=== PATIENT | female | born 1965 | race Caucasian/White ===

== ENCOUNTER 2016-09-29 07:38 | Inpatient (IN) | payer BC, OTHER ==
[2016-09-13 13:26] VITALS: BMI 39.0
--- NOTE | 2016-09-13 14:07 | PAT Medication Instructions ---
Service Date Sep 13, 2016. Current Home Medication List Acetamin/Butalbital/Caffeine (Fioricet), 1 TAB PO Q4 PRN for Migraine Aspirin (Aspirin 81), 81 MG PO QAM Docusate Sodium (Stool Softener), 1 CAP PO QAM Hctz/Losartan (Hyzaar 25MG/100MG), 1 TAB PO QAM Medication Instructions For Your Scheduled Surgery - Hold the following medications the morning of surgery: Hctz/Losartan (Hyzaar 25MG/100MG), 1 TAB PO QAM Docusate Sodium (Stool Softener), 1 CAP PO QAM Acetamin/Butalbital/Caffeine (Fioricet), 1 TAB PO Q4 PRN for Migraine - Take the following medications the morning of surgery with a sip of water OTHERWISE NOTHING TO EAT OR DRINK AFTER MIDNIGHT: Aspirin (Aspirin 81), 81 MG PO QAM If you have any questions please call us at [phone] or [phone] or [phone]
--- NOTE | 2016-09-13 15:01 | DIAGNOSTIC IMAGING REPORT ---
CHEST PREADMISSION(PA/LAT) CLINICAL HISTORY: Preoperative evaluation. COMPARISON STUDY: Chest radiograph February 01, 2016. FINDINGS: Lung volumes are normal. There is no pneumothorax or pleural effusion. Cardiac size is normal. Mediastinal contours are stable. Lungs are clear. There is no evidence of pulmonary edema. IMPRESSION: No acute cardiopulmonary findings. Electronically signed by: Devin Mart M.D. 09/13/2016 3:00 PM Dictated Date/Time: 09/13/2016 3:00 PM
[2016-09-13 15:17] LABS: BASO % 0.2 %; BASO ABS # 0.02 K/uL (0-0.2); COMPLETE YES; EOS % 2.1 %; HEMATOCRIT 40.4 % (37-47); IG% 0.2 %; LYMPH % 25.7 %; LYMPH ABS # 2.19 K/uL (1.2-3.4); MEAN CELL VOLUME 82.3 fL (80-100); MEAN CORPUSCULAR HEMOGLOBIN 28.3 pg (25-34); MEAN CORPUSCULAR HGB CONC 34.4 g/dl (32-36); MEAN PLATELET VOLUME 10.4 fL (7.4-10.4); MONO % 7.6 %; NEUT % 64.2 %; PLATELET COUNT 318 K/uL (130-400); RED BLOOD COUNT 4.91 M/uL (4.2-5.4); WHITE BLOOD COUNT 8.52 K/uL (4.8-10.8)
[2016-09-13 15:28] LABS: URINE APPEARANCE CLEAR (CLEAR); URINE BILIRUBIN NEG (NEG); URINE COLOR YELLOW; URINE EPITHELIAL CELL AUTO 20-30 /lpf (0-5); URINE NITRITE NEG (NEG); URINE PH 5.5 (4.5-7.5); URINE SPECIFIC GRAVITY 1.008 (1.000-1.030); UROBILINOGEN NEG (NEG)
[2016-09-13 15:30] LABS: MANUAL MICROSCOPIC REQUIRED? NO; REVIEW REQ? NO
[2016-09-13 15:35] LABS: BUN/CREATININE RATIO 22.8 (10-20); CALCIUM 9.6 mg/dl (8.5-10.1); CREATININE 0.83 mg/dl (0.60-1.20); POTASSIUM 3.7 mmol/L (3.5-5.1)
[2016-09-29] VITALS (8 sets, daily range): BP systolic 108–156; BP diastolic 66–81; PULSE 62–86; TEMP 36.5–36.8; O2SAT 92–96; Ht 157.5 cm; Wt 97.2 kg
[~2016-09-29] VITALS: Ht 157.5 cm; Wt 97.2 kg
--- NOTE | 2016-09-29 07:27 | History & Physical Bridge Note ---
H&P Re-Evaluation Bridge Note: I have examined the patient, reviewed the History & Physical and in the interval since the performance of the History & Physical I have noted the following changes of clinical significance: No changes noted
--- NOTE | 2016-09-29 07:33 | History and Physical ---
History & Physical Date & Time of Service: Sep 29, 2016 at 07:27 Chief Complaint: Spinal Stenosis Primary Care Physician: Rush Mello M.D. History of Present Illness Source: patient Patient presents for a lumbar decompression and fusion L4-S1. Has lower back and Left leg pain. failed non operative treatment. Past Medical/Surgical History Medical Problems: (1) HTN (hypertension) Status: Chronic (2) Small vessel disease Status: Chronic Surgical Problems: (1) History of hysterectomy Status: Resolved (2) S/P foot surgery, right Status: Resolved Social History Smoking Status: Never Smoker Smokeless Tobacco Use: No Alcohol Use: none Drug Use: none Marital Status: Housing status: lives with family Occupational Status: employed Multi-Drug Resistant Organisms History of MDRO: No Allergies Coded Allergies: No Known Allergies (Unverified , 09/13/16) Home Medications Scheduled Aspirin (Aspirin 81), 81 MG PO QAM Docusate Sodium (Stool Softener), 1 CAP PO QAM Hctz/Losartan (Hyzaar 25MG/100MG), 1 TAB PO QAM Scheduled PRN Acetamin/Butalbital/Caffeine (Fioricet), 1 TAB PO Q4 PRN for Migraine Physical Exam General Appearance: no apparent distress Head: normocephalic Eyes: normal inspection ENT: normal ENT inspection Neck: supple Respiratory/Chest: chest non-tender Cardiovascular: regular rate, rhythm Abdomen/GI: non tender, soft Back: normal inspection Extremities/Musculoskelatal: normal inspection, no calf tenderness Neurologic/Psych: cook candy II-XII nml as tested, no motor/sensory deficits Skin: normal color Diagnostics Diagnostic Radiology Degenerative finding L4-5 and L5-S1 with spinal stenosis. Impression Assessment and Plan Low back Left leg pain. Will proceed with L4 to S1 decompression and fusion. Discussed risks vs benefits. Advanced Directives Existing Living Will: Yes (ENCOURAGED TO BRING COPY DOS ) Existing Power of Surgical Services Director: Yes
[~2016-09-29 07:38] MED LIST: ASPI-435 PO; CEFAZOLIN 2000 MG/60 ML D5W IV SCH; DOCU100C PO; FRCT/ PO; HYZ/10015 PO; LACTATED RINGER'S 1000ML 1,000 ML IV SCH
[2016-09-29] MEDS ORDERED: FENTANYL CITRATE INJ 50 MCG/1 ML 2 ML VIAL ONE ×2 (09:13→10:27)
[2016-09-29] MEDS ORDERED: MIDAZOLAM HCL 1 MG/ML 2ML VIAL ONE (09:13)
[2016-09-29] MEDS ORDERED: BUPIVACAINE/EPINEPHRINE 0.5% MPF 1:200,000 30 ML VIAL ONE (09:49)
[2016-09-29] MEDS ORDERED: SODIUM CHLORIDE 0.9% PF 50 ML VIAL ONE (09:50)
[2016-09-29] MEDS ORDERED: BACITRACIN 50000 UNIT VIAL ONE (09:50)
[2016-09-29] MEDS ORDERED: HYDROmorphone INJ 2 MG/ML SYR/VIAL ONE (10:28)
[2016-09-29] MEDS ORDERED: ATROPINE SULFATE 0.1 MG/ML 5ML SYR IV PRN (11:15)
[2016-09-29] MEDS ORDERED: ONDANSETRON INJ 2 MG/ML 2 ML VIAL IV PRN ×2 (11:15→12:00)
[2016-09-29] MEDS ORDERED: LABETALOL HCL IV 5 MG/ML 20ML IV PRN (11:15)
[2016-09-29] MEDS ORDERED: SODIUM CHLORIDE 0.9% 1000ML 1,000 ML IV SCH (11:57)
--- NOTE | 2016-09-29 11:57 | [facility] Post Operative Brief Note ---
Immediate Operative Summary Operative Date Sep 29, 2016. Pre-Operative Diagnosis Degenerative finding L4-L5, L5-S1 with Spinal Stenosis Post-Operative Diagnosis Same as preoperative diagnosis Procedure(s) Performed L4-L5, L5-S1 Lumbar Decompression and Fusion, with Verical Spine, Interbody L4-L5 Surgeon Dr Monet Dance [employer] Hostess Surgeon(s) Benny Poon PA-C Estimated Blood Loss 200ml Findings stenosis/spondy Specimens None per surgeon
[2016-09-29] MEDS ORDERED: NALOXONE HCL 0.4 MG/1 ML VIAL/CARP IV PRN ×2 (12:00)
[2016-09-29] MEDS ORDERED: METOCLOPRAMIDE HCL INJ 5 MG/ML 2 ML VIAL IV PRN (12:00)
[2016-09-29] MEDS ORDERED: hydrOXYzine HCL 25 MG TAB PO PRN (12:00)
[2016-09-29] MEDS ORDERED: LORAZEPAM INJ 0.5 MG in SYRINGE 0 ML IV PRN (12:00)
[2016-09-29] MEDS ORDERED: BUTALBITAL/ACETAMIN/CAFFEINE TAB PO PRN (12:00)
[2016-09-29] MEDS ORDERED: FAMOTIDINE 20 MG TAB PO PRN (12:00)
[2016-09-29] MEDS ORDERED: ALUMINUM/MAGNESIUM SUSP 30 ML UDC PO PRN (12:00)
[2016-09-29] MEDS ORDERED: BISACODYL 10 MG SUPP PR PRN (12:00)
[2016-09-29] MEDS ORDERED: DO NOT ADMINISTER FLU VACCINE PRN ×3 (12:00)
[2016-09-29] MEDS ORDERED: SOD PHOSPHATE/SOD BIPHOSPHATE ENEMA 132 ML BTL PR PRN (12:00)
[2016-09-29] MEDS ORDERED: ACETAMINOPHEN IV 100 ML IV PRN (12:00)
[2016-09-29] MEDS ORDERED: MAGNESIUM HYDROXIDE SUSP 30 ML UDC PO PRN (12:00)
[2016-09-29] MEDS ORDERED: PROMETHAZINE HCL INJ 12.5 MG in SODIUM CHLORIDE 0.9% 50ML 50 ML IV PRN (12:00)
[2016-09-29] MEDS ORDERED: ACETAMINOPHEN 500 MG TAB PO PRN (12:00)
[2016-09-29] MEDS ORDERED: LORAZEPAM 0.5 MG TAB PO PRN (12:00)
[2016-09-29] MEDS ORDERED: DO NOT ADMINISTER PNEUMOCOCCAL VACCINE PRN ×2 (12:00)
[2016-09-29] MEDS ORDERED: PROPOFOL IV EMULSION 10 MG/ML 20 ML VIAL IV ONE (12:02)
[2016-09-29] MEDS ORDERED: EpHEDrine SULFATE 50MG/5ML SYR ONE (12:02)
[2016-09-29] MEDS ORDERED: NEOSTIGMINE METHYLSULFATE 1 MG/ML 10ML VIAL ONE (12:02)
[2016-09-29] MEDS ORDERED: LIDOCAINE HCL 2% 2 ML VIAL (20MG/ML) ONE (12:02)
[2016-09-29] MEDS ORDERED: ONDANSETRON INJ 2 MG/ML 2 ML VIAL ONE (12:02)
[2016-09-29] MEDS ORDERED: ROCURONIUM BROMIDE 10 MG/ML 5 ML VIAL ONE (12:02)
[2016-09-29] MEDS ORDERED: GLYCOPYRROLATE INJ 0.2 MG/ML VIAL ONE (12:02)
[2016-09-29] MEDS ORDERED: DEXAMETHASONE SOD INJ 4 MG/ML VIAL ONE (12:02)
[2016-09-29] MEDS ORDERED: KETOROLAC TROMETHAMINE 30 MG/ML VIAL ONE (12:03)
--- NOTE | 2016-09-29 12:16 | DIAGNOSTIC IMAGING REPORT ---
LUMBAR SPINE, INTRAOPERATIVE FLUOROSCOPY HISTORY: L4-S1 decompression and fusion. FLUOROSCOPY TIME: 24 seconds. FINDINGS: Intraoperative fluoroscopy was provided for the lumbar spine. 2 fluoroscopic spot images were obtained. Posterior decompression and fusion from L4 through S1 with pedicle screws and rods. The hardware appears intact. IMPRESSION: Fluoroscopy provided for a L4-S1 posterior decompression and fusion. Electronically signed by: Thong Barrios M.D. 09/29/2016 12:14 PM Dictated Date/Time: 09/29/2016 12:14 PM
--- NOTE | 2016-09-29 12:17 | OPERATIVE REPORT ---
DATE OF OPERATION: 09/29/2016 PREOPERATIVE DIAGNOSES: Spinal stenosis, spondylolisthesis. POSTOPERATIVE DIAGNOSIS: Same. PROCEDURE PERFORMED: 1. Lumbar decompression, medial facetectomy, and foraminotomy L3-4, L4-5, L5-S1. 2. Posterior spinal fusion L4-5, L5-S1. 3. Placement posterior segmental instrumentation using Orthros rods and screws L4-5, L5-S1. 4. Interbody fusion L4-L5. 5. Placement of PEEK cage 12 x 22 mm at L4-L5. 6. Placement of locally harvested morcellized autograft in the posterior gutters. 7. Placement of Infuse collagen sponge combined with Mastergraft in the posterior gutters and Karine bone graft in the interbody space. SURGEON: Dr. Dinesh Monet. SYSTEMS INTEGRATOR: Sunday Poon PA-C. Due to the complex nature of the procedure, the entire surgery was performed with the health care legal assistant of Sunday Poon PA-C. The emergency room physician assistant, under direct supervision, was involved in the actual performance of all aspects of the surgical procedure including hemostasis, tissue retraction and incision, instrument management, patient positioning, and wound closure. ANESTHESIA: General. DISPOSITION: The patient awakened and taken to PACU in stable condition. HISTORY OF PATIENT'S PROBLEMS: This is a 51-year-old female that presents with above-mentioned diagnosis. After failing an extensive course of nonoperative care, elected to undergo the above-mentioned procedure. Risks, benefits, pros, cons, and alternatives were outlined in detail preoperatively. OPERATION AND FINDINGS: PROCEDURE: The patient was met with preoperatively, case discussed and all questions were addressed. At that point the patient was taken back to operative suite and after undergoing successful general intubation by the department of anesthesia was placed in prone position on Desmond table atop Jonh frame. All bony prominences were well padded and the eyes were inspected to ensure there was no external pressure placed upon them. At this point, lumbar spine was prepped and draped in normal sterile fashion. Sharp dissection with the assistance of Bovie cautery was performed down to and exposing the lamina and transverse processes of L4-L5 and sacral ala bilaterally. From a caudal to cephalad fashion, complete laminectomy of L5, L4, partial laminectomy of L3 was performed addressing severe lateral recess stenosis secondarily exacerbated by the spondylolisthesis at L4-5 level. After this was complete, pedicle screws were then placed in 4, 5 and S1 levels bilaterally with the assistance of fluoroscopy and through a transforaminal approach on the right, a complete discectomy of L4-5 was performed, endplates curetted to subcortical bone and a 12 x 22 mm PEEK cage filled with Karine bone grafting tapped into position. Appropriate size rods were then contoured, locked into position bilaterally and the transverse processes of 4, 5 and sacral ala burred to subcortical bone. Infuse collagen sponge combined with Mastergraft and locally harvested morselized autograft was placed in the posterior gutters. A 7 flat GODFREY drain was inserted. Incision was closed with 1 Vicryl in the fascia, 2-0 Vicryl subcutaneously, 4-0 Monocryl for final skin closure. Steri-Strips and sterile dressing placed. The patient was awakened and taken to PACU in stable condition. I attest to the content of the Intraoperative Record and any orders documented therein. Any exceptio ns are noted below.
[2016-09-29] MEDS: HYDROmorphone INJ 2 MG/ML SYR/VIAL IV PRN ×4 (12:25→12:40)
[2016-09-29] MEDS ORDERED: HYDROmorphone INJ 1 MG/ML SYR IV PRN (12:30)
[2016-09-29] MEDS: HYDROmorphone HCL 0.5MG/ML 50 ML CASSETTE IV PRN ×4 (12:42→22:48)
--- NOTE | 2016-09-29 13:40 | Anesthesiology Progress Note ---
Anesthesia Post Op Note Date & Time Sep 29, 2016 at 13:40 Vital Signs Pain Intensity: 4 Vital Signs Past 12 Hours Date Time Temp Pulse Resp B/P Pulse Ox O2 Delivery O2 Flow Rate FiO2 09/29/16 13:05 72 14 150/79 95 Nasal Cannula 3 09/29/16 12:55 36.2 75 14 165/87 94 Nasal Cannula 3 09/29/16 12:45 75 18 149/77 97 Mask 10 09/29/16 12:35 79 18 149/86 97 Mask 10 09/29/16 12:25 81 18 142/80 97 Mask 15 09/29/16 12:22 36.4 82 14 144/94 97 Mask 15 09/29/16 08:17 36.8 75 20 156/79 96 Room Air Notes Mental Status: alert / awake / arousable, participated in evaluation Pt Amnestic to Procedure: Yes Nausea / Vomiting: adequately controlled Pain: adequately controlled Airway Patency, RR, SpO2: stable & adequate BP & HR: stable & adequate Hydration State: stable & adequate Anesthetic Complications: no major complications apparent
[2016-09-29] MEDS: LACTATED RINGER'S 1000ML 1,000 ML IV SCH ×2 (14:14→20:36)
[2016-09-29] MEDS: CEFAZOLIN IV 2,000 MG in DEXTROSE 5% 50ML 50 ML IV SCH (17:40)
[2016-09-29] MEDS: DEXAMETHASONE INJ 6 MG in SYRINGE 0 ML IV SCH (20:31)
[2016-09-29] MEDS: DOCUSATE SODIUM/SENNA 50/8.6MG TAB PO SCH (20:33)
[2016-09-30] VITALS (7 sets, daily range): BP systolic 101–130; BP diastolic 60–67; PULSE 57–76; TEMP 36.7–37.1; O2SAT 90–96
[2016-09-30] MEDS: LACTATED RINGER'S 1000ML 1,000 ML IV SCH ×2 (02:20→10:02)
[2016-09-30] MEDS: CEFAZOLIN IV 2,000 MG in DEXTROSE 5% 50ML 50 ML IV SCH (02:20)
[2016-09-30] MEDS: DEXAMETHASONE INJ 6 MG in SYRINGE 0 ML IV SCH ×2 (03:33→13:13)
[2016-09-30 05:40] LABS: COMPLETE YES; HEMATOCRIT 32.5 % (37-47); IG% 0.2 %; LYMPH % 5.8 %; MEAN CELL VOLUME 83.3 fL (80-100); MEAN CORPUSCULAR HEMOGLOBIN 27.7 pg (25-34); MEAN CORPUSCULAR HGB CONC 33.2 g/dl (32-36); MEAN PLATELET VOLUME 10.5 fL (7.4-10.4); MONO % 3.2 %; NEUT % 90.8 %; PLATELET COUNT 238 K/uL (130-400); WHITE BLOOD COUNT 12.12 K/uL (4.8-10.8)
[2016-09-30] MEDS ORDERED: HYDROmorphone INJ 0.5 MG/0.5 ML SYR IV PRN (06:00)
[2016-09-30] MEDS ORDERED: DC PCA SCH (06:00)
[2016-09-30 06:04] LABS: BUN/CREATININE RATIO 22.8 (10-20); CALCIUM 8.3 mg/dl (8.5-10.1); CREATININE 0.76 mg/dl (0.60-1.20); POTASSIUM 4.2 mmol/L (3.5-5.1)
[2016-09-30] MEDS: LOSARTAN/HCTZ 50-12.5 EA TAB PO SCH (09:00)
[2016-09-30] MEDS: OXYCODONE HCL IR 5 MG TAB (IMMEDIATE RELEASE) PO PRN ×5 (09:12→22:08)
[2016-09-30] MEDS ORDERED: RXC5 PO (09:33)
--- NOTE | 2016-09-30 09:34 | Discharge Instructions ---
Discharge Instructions Admission Reason for Admission: Spinal Stenosis Discharge Discharge Diagnosis / Problem: stenosis Discharge Goals Goal(s): Improve function Activity Recommendations Activity Limitations: per Instructions/Follow-up section . Instructions / Follow-Up Instructions / Follow-Up ACTIVITY RECOMMENDATIONS: SELF CARE INSTRUCTIONS AFTER THORACIC/LUMBAR FUSIONS 1. You may walk to your tolerance. It is good exercise for your legs and back. Expect some back and intermittent leg aches and pains. 2. You may perform "counter-top" level activities (make a sandwich, lobo with a project, etc.). 3. No bending or lifting of more than 10 pounds or back twisting of any nature (roll like a log when turning in bed). 4. You may ride in a car for 20-30 minutes at a time. No driving until after your first visit with your doctor. 5. Frequent changes of position and restricting sitting to 30 minutes at a time will help limit the amount of back spasms and stiffness you may experience. 6. You may discontinue the use of ambulatory aids (cane, crutches, etc.) once your strength and confidence allow. 7. You may engineering production worker the shower and let water strike your incision when you arrive home at least once daily. Do not take a tub bath, sit in a hot tub or go into a swimming pool until after your first recheck in the office. SPECIAL CARE INSTRUCTIONS: VERY IMPORTANT TO READ AND REVIEW A. Your surgical incision has been closed with a cosmetic suture under the skin that will dissolve in about 6 weeks. In 14 days, you can use a pair of clean scissors and cut the suture that is left outside of the skin at the ends of your incision. 1. The small skin tapes can be removed 7 days after surgery if they have not fallen off by that point. 2. You may keep the wound open to air as much as possible to promote healing after post-op day number 5 unless told otherwise by your doctor. 3. If you think the wound looks like it is becoming infected (redness or worsening drainage) and/or you are experiencing fever, chill or worsening back pain and muscle spasms, contact the office so that we may evaluate you as soon as possible. B. Complications are uncommon, but please contact us if you have any signs or symptoms of: 1. wound infection (fever higher than 102.5 degrees F, redness, separation of wound, drainage, or increasing pain from the incision) 2. blood clots in legs (pain, swelling, redness and warmth in legs) 3. urinary tract infection (fever higher than 102.5 degrees F, burning upon urination or increased frequency of urination) 4. nerve problems (inability to walk on your toes or heels, numbness, loss of bowel or bladder control) 5. any other symptoms that concern you C. Please call the office at if you have any concerns or questions about your operation or recovery. D. No smoking! Smoking drastically decreases the chance of a solid fusion. E. Do not take any anti-inflammatory medications (Indocin, Advil, Motrin, Aspirin, Naprosyn, etc.) as these may inhibit the chance of a solid fusion. Tylenol is okay to take for pain. MANAGING PAIN AFTER SPINAL SURGERY 1. Narcotic medication is intended for short-term use and will be provided for surgical pain. Surgical pain usually lasts for a period of 4-6 weeks. Narcotic medication includes Percocet, Vicodin, Darvocet, Tylenol #3 or Lortab. 2. Longer-term pain is more appropriately treated with non-narcotic medication such as Tylenol ES. 3. Muscle spasm is not appropriately treated with narcotics. Muscle relaxers such as Soma, Flexeril or Skelaxin can be used along with Tylenol ES. 4. Remember that we all live with some "aches and pains". This is not unusual or uncommon after an injury or as we get older. a. Back pain is expected and may include muscle spasms for 4 to 6 weeks after surgery. The pain should gradually improve. If the pain worsens for no apparent reason, please contact the office. b. Intermittent leg pain may also be experienced and should not be concerned about unless it worsens for no apparent reason. If so, please contact the office. 5. We will provide appropriate medication within the normal guidelines of their prescribed use. We will also be very cautious and aware of potential abuse and extended duration of patients' medication needs. a. Pain medications are for your comfort and to assist with sleep and rest so that the tissue can heal. They are not provided in order to return to normal activity and should not be used through the day. To do so or worsening pain at night can result from ongoing tissue damage and development of tolerance to the prescribed medicine. 6. Please allow 2-3 days to process refills. Prescriptions will not be mailed but must be picked up at the office. FOLLOW UP VISIT: Keep your scheduled follow-up appointment. Any questions, please call the office at . Current Hospital Diet Patient's current hospital diet: Regular Diet Discharge Diet Recommended Diet: Regular Diet Procedures Procedures Performed: L4-L5, L5-S1 Lumbar Decompression and Fusion, with Verical Spine, Interbody L4-L5 Pending Studies Studies pending at discharge: no Medical Emergencies . Who to Call and When: Medical Emergencies: If at any time you feel your situation is an emergency, please call 911 immediately. . Non-Emergent Contact Non-Emergency issues call your: Primary Care Provider . "Provider Documentation" section prepared by Dinesh Monet. VTE Core Measure Inpt VTE Proph given/why not?: Vaishali Moses, SCD's
[2016-09-30] MEDS: ASPIRIN 81 MG ECTAB PO SCH (10:02)
--- NOTE | 2016-09-30 10:24 | PROGRESS NOTE ---
DATE: 09/30/2016 DATE: 09/30/2016. SUBJECTIVE: Back pain is controlled. Leg pain markedly improved. Vital signs stable. T-max 37.1. GODFREY drained 70 mL today. Hematocrit stable at 32.5. OBJECTIVE: On exam she is in chair at bedside. Has good strength to testing. ASSESSMENT: Status post lumbar decompression and fusion. PLAN: At this time, will continue physical therapy, advance her bowel regimen and anticipate home Sunday or Sunday.
[2016-09-30] MEDS ORDERED: NURSING VERBAL MED ORDER ONE (17:30)
[2016-09-30] MEDS: DOCUSATE SODIUM/SENNA 50/8.6MG TAB PO SCH (21:01)
[2016-10-01] MEDS: OXYCODONE HCL IR 5 MG TAB (IMMEDIATE RELEASE) PO PRN ×3 (02:11→10:15)
[2016-10-01] MEDS: POLYETHYLENE (MIRALAX) 17 GM PACK PO SCH ×2 (06:15→12:31)
[2016-10-01 06:36] VITALS: BP 117/72; PULSE 64; TEMP 37; O2SAT 92
[2016-10-01] MEDS: LOSARTAN/HCTZ 50-12.5 EA TAB PO SCH (07:17)
[2016-10-01] MEDS: ASPIRIN 81 MG ECTAB PO SCH (07:27)
--- NOTE | 2016-10-01 11:02 | DISCHARGE SUMMARY ---
PRINCIPAL DIAGNOSIS: Spinal stenosis. HOSPITAL COURSE FOLLOWS: On September 29, patient underwent lumbar decompression and fusion, tolerated this well and taken to the orthopedic floor postoperatively. Postop day #1, she was up and ambulatory, progressed nicely through postop day #2. GODFREY drain decreased appropriately, subsequently discharged home. Discharge orders and instructions found on the chart for further review.
[2016-10-01 11:57] VITALS: BP 117/72; PULSE 64; TEMP 37; O2SAT 92
== END 2016-10-01 13:01 | disposition home or self-care (01) | DRG 460 ==
LOC: ENRESERVDT → ENRESERVTM → C.ACU 07:38 → C.3E 10:00
PROVIDERS: ADMIT Orthopaedic Surgery Orthopaedic Surgery of the Spine; ATTEND Orthopaedic Surgery Orthopaedic Surgery of the Spine
PROC: 0SG3071 Fusion of Lumbosacral Joint with Autologous Tissue Substitute, Posterior Approach, Posterior Column, Open Approach (ICD-10-PCS; principal; 2016-09-29 09:55)
PROC: 3E0U0GB Introduction of Recombinant Bone Morphogenetic Protein into Joints, Open Approach (ICD-10-PCS; principal; 2016-09-29 09:55)
PROC: 0SG00AJ Fusion of Lumbar Vertebral Joint with Interbody Fusion Device, Posterior Approach, Anterior Column, Open Approach (ICD-10-PCS; principal; 2016-09-29 09:55)
PROC: 01NB0ZZ Release Lumbar Nerve, Open Approach (ICD-10-PCS; principal; 2016-09-29 09:55)
PROC: 0ST20ZZ Resection of Lumbar Vertebral Disc, Open Approach (ICD-10-PCS; principal; 2016-09-29 09:55)
PROC: 0SG0071 Fusion of Lumbar Vertebral Joint with Autologous Tissue Substitute, Posterior Approach, Posterior Column, Open Approach (ICD-10-PCS; principal; 2016-09-29 09:55)
DX: M48.06 Spinal stenosis, lumbar region (principal); M48.07 Spinal stenosis, lumbosacral region; M43.16 Spondylolisthesis, lumbar region; I10 Essential (primary) hypertension; G43.909 Migraine, unspecified, not intractable, without status migrainosus; E66.9 Obesity, unspecified; Z68.39 Body mass index [BMI] 39.0-39.9, adult; Z79.82 Long term (current) use of aspirin; Z79.899 Other long term (current) drug therapy

== ENCOUNTER 2020-03-15 07:00 | Observation (INO) ==
--- NOTE | 2020-02-25 12:42 | PAT Medication Instructions ---
Medication Instructions Date of Service February 25, 2020 Home Medications rnqxoqaqyb-jowffumbxtmvj-vcgsrcel 50 mg-300 mg-40 mg capsule 1 cap PO Q8H PRN aspirin 81 mg PO QAM hydrochlorothiazide 25 mg PO QAM losartan 100 mg PO QAM meloxicam [Mobic] 15 mg PO QAM ASK your surgeon for instructions meloxicam [Mobic] 15 mg PO QAM DO NOT take the morning of surgery yuvfexcwjz-hiqkvcnprzdwc-opswwyco 50 mg-300 mg-40 mg capsule 1 cap PO Q8H PRN hydrochlorothiazide 25 mg PO QAM losartan 100 mg PO QAM Take morning of surgery With a small sip of water, OTHERWISE NOTHING TO EAT OR DRINK AFTER MIDNIGHT: aspirin 81 mg PO QAM Other Notes If you have any questions please call us at [phone] or [phone] or [phone] or [phone]
--- NOTE | 2020-02-25 14:23 | Anesthesiology Consultation ---
Date of Service February 25, 2020 Assessment & Plan (1) Encounter for pre-operative examination: COVID Status: As of 02/24 assessment, patient denies travel to endemic area, known exposure/sick contacts, or symptoms of COVID19. Patient instructed that they and their household members must follow strict social distancing guidelines, wear a mask in public and avoid travel for 14 days prior to surgery. Preoperative COVID19 testing to be completed prior to surgery per surgeon's arrangements. Patient made aware to self-isolate as much as possible between COVID testing and surgery. Chart Review Chart Review: Acceptable Risk for Surgery and Patient seen in Pre Admission Testing Teaching & Discussion Instructed NPO after midnight before surgery, except medications with 15 cc of water. Medication instructions provided according to the PAT guidelines. History Surgery Operation Date: 03/15/20 09:20 Proposed Procedures p Left Uni Compartment Knee Arthroplasty versus - Beto Arvizu DO s Left Total Knee Arthroplasty - Beto Arvizu DO Height/Weight Height: 5 ft 2.5 in Weight: 101.2 kg Allergies Allergy/AdvReac Type Severity Reaction Status Date / Time No Known Allergies Allergy Verified 02/19/20 07:46 Medications Home Medications Medication Instructions Recorded Confirmed Last Taken gfremjozfo-wswhdslkrxwcg-lfpzsdtd 1 cap PO Q8H PRN 10/01/19 02/25/20 Unknown 50 mg-300 mg-40 mg capsule aspirin 81 mg PO QAM 02/19/20 02/25/20 Unknown hydrochlorothiazide 25 mg PO QAM 02/19/20 02/25/20 Unknown losartan 100 mg PO QAM 02/19/20 02/25/20 Unknown meloxicam [Mobic] 15 mg PO QAM 02/19/20 02/25/20 Unknown Past Medical History Medical History (Updated 02/26/20 @ 08:50 by Jung Morrow) Hypertension Migraines Morbid obesity Osteoarthritis Small vessel disease Syncopal episodes LAST EPISODE 1.5 YEARS AGO. Patient reports she had a full workup for syncope and it was eventually ruled to be a complex migraine. Exercise / Class Metabolic Activity II 4-5 Yardwork/Stairs/Walk up hill (Denies CP or SOB with 1FOS) Past Family History Family History Other No significant family history Past Surgical History Surgical History Family history of reaction to anesthesia MOTHER AND SISTER-SLOW TO WAKE UP Fusion of spine LUMBAR H/O foot surgery RT (SPUR/TENDON REPAIR) History of anesthesia reaction SLOW COMING OUT OF ANESTHESIA History of cardiac cath AT AGE 38 D/T SYNCOPAL EPISODE (NO STENTS) History of carpal tunnel release LEFT History of colonoscopy History of tooth extraction Hx of total hysterectomy Past Anesthesia History No Family Hx of Anesthesia Complications (other than "slow to wake") Pt reports she was kept overnight after hysterectomy when she was supposed to go home same-day because she was so "slow to wake." History of PONV No Hx of PONV and No Hx of Motion Sickness Social History Smoking Status: Never smoker Do You Dip or Chew Tobacco: No Hx Alcohol Use: Yes alcohol intake frequency: holidays/special occasions only Hx Substance Use: No substance use type: does not use Review of Systems Pt denies any recent chest pain, shortness of breath, palpitations, cough, fever, URI, or uncontrolled acid reflux. Physical Exam Vital Signs BP: 119/73 P: 78bpm SPO2: 98% RA T: 98.2 F R: 16 Constitutional + obese ENMT Mouth: + dental restorations (crown lower L side); no chipped teeth and no loose teeth Thyromental Distance: > or= 3.5 Finger Breadths (4) Mallampati Class: I Neck + short neck and + thick neck; neck extension not limited Respiratory normal respiratory effort Auscultation: + crackles (Inspiratory L lung base, otherwise CTA B/L) Cardiovascular Rate/Rhythm: regular rate and regular rhythm Heart Sounds: no murmur Vessels: no carotid bruit Extremities: no edema Testing Laboratory Results 02/25/20 14:15 02/25/20 14:15 PT 11.3 Seconds (9.0-12.0) 02/25/20 14:15 INR 1.1 (0.9-1.1) 02/25/20 14:15 APTT 27.4 Seconds (21.0-31.0) 02/25/20 14:15 Blood Type B Positive 02/25/20 14:15 Antibody Screen NEGATIVE 02/25/20 14:15 Electrocardiogram Date: 09/15/19 Findings: + NSR @ (84bpm) Moderate voltage criteria for LVH, may be normal variant. NSTWA. Chest X-Ray Date: 09/15/19 Findings: + NAD
[2020-02-25 15:08] LABS: Basophils # (auto) 0.01 K/uL (0-0.2); Basophils % (auto) 0.1 %; Eosinophils # (auto) 0.16 K/uL (0-0.5); Eosinophils % (auto) 2.1 %; Hematocrit (blood only) 39.8 % (37-47); Hemoglobin 13.3 g/dL (12.0-16.0); Immature Granulocytes # (auto) 0.01 K/uL (0.00-0.02); Immature Granulocytes % (auto) 0.1 %; Lymphocytes % (auto) 27.9 %; Mean Corpuscular Hemoglobin 27.9 pg (25-34); Mean Corpuscular Hgb Conc 33.4 g/dL (32-36); Mean Corpuscular Volume 83.4 fL (80-100); Mean Platelet Volume 10.5 fL (7.4-10.4); Monocytes # (auto) 0.53 K/uL (0.11-0.59); Neutrophils # (auto) 4.71 K/uL (1.4-6.5); Neutrophils % (auto) 62.8 %; Platelet Count 329 K/uL (130-400); RDW Coefficient of Variation 13.7 % (11.5-14.5); RDW Standard Deviation 41.1 fL (36.4-46.3); Red Blood Count 4.77 M/uL (4.2-5.4); White Blood Count 7.52 K/uL (4.8-10.8)
[2020-02-25 15:20] LABS: INR 1.1 (0.9-1.1); Partial Thromboplastin Time 27.4 Seconds (21.0-31.0); Prothrombin Time 11.3 Seconds (9.0-12.0)
[2020-02-25 15:36] LABS: BUN Creatinine Ratio 18.9 (10-20); Calcium 9.2 mg/dl (8.5-10.1); Creatinine Clr Calc Pharmacy 72.8 ml/min; Est GFR (African American) 75.7; Est GFR (Non-African American) 65.3; Potassium 3.8 mmol/L (3.5-5.1)
--- NOTE | 2020-03-11 07:02 | History & Physical Report ---
Date of Service March 11, 2020 Assessment & Plan (1) Osteoarthritis of left knee: We will proceed with a left unicompartmental knee arthroplasty. She understands the increased risk of the procedure given her obesity and BMI of 40.2. She would still like to proceed with a partial knee replacement over a standard knee replacement procedure. Postoperatively she will be kept overnight in the hospital for postoperative medical management. She will be kept on aspirin for DVT prophylaxis. She plans to use [facility] upon discharge. Present on Admission?: Yes History of Present Illness Chief Complaint: Primary osteoarthritis of the left knee Primary Care Provider: Rush Mello MD Halie is a pleasant 55-year-old female who is been dealing with chronic increasing left knee pain. MRI, x-rays, and clinical examination have all been diagnostic for medial compartmental arthritis of the left knee. After failing conservative treatment, she has elected to proceed with a left unicompartmental knee arthroplasty. Allergies Allergy/AdvReac Type Severity Reaction Status Date / Time No Known Allergies Allergy Verified 02/19/20 07:46 Home Medications Home Medications Medication Instructions Recorded Confirmed Type sabgzggaqp-javxgknqsrynd-lcuvikvc 1 cap PO Q8H PRN 10/01/19 02/25/20 History 50 mg-300 mg-40 mg capsule aspirin 81 mg PO QAM 02/19/20 02/25/20 History hydrochlorothiazide 25 mg PO QAM 02/19/20 02/25/20 History losartan 100 mg PO QAM 02/19/20 02/25/20 History meloxicam [Mobic] 15 mg PO QAM 02/19/20 02/25/20 History Past Med/Surg History Medical History Hypertension Migraines Morbid obesity Osteoarthritis Small vessel disease Syncopal episodes LAST EPISODE 1.5 YEARS AGO. Patient reports she had a full workup for syncope and it was eventually ruled to be a complex migraine. Surgical History Family history of reaction to anesthesia MOTHER AND SISTER-SLOW TO WAKE UP Fusion of spine LUMBAR H/O foot surgery RT (SPUR/TENDON REPAIR) History of anesthesia reaction SLOW COMING OUT OF ANESTHESIA History of cardiac cath AT AGE 38 D/T SYNCOPAL EPISODE (NO STENTS) History of carpal tunnel release LEFT History of colonoscopy History of tooth extraction Hx of total hysterectomy Family History Other No significant family history Social History Smoking Status: Never smoker Second Hand Exposure: Yes ( A CHILD); Hx Alcohol Use: Yes Hx Substance Use: No Preferred Language: Korean 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 Beliefs That Will Affect Care: None Current Living Situation: Family Feels Safe at Home: Yes Review of Systems Review of Systems: All systems reviewed & are unremarkable except as noted in HPI & below Physical Exam Constitutional: WD/WN, vitals as above Eyes: PERRL, conjunctivae normal, anicteric sclerae ENMT: external ear and nose normal, oropharynx normal Neck: trachea midline, no thyromegaly Respiratory: normal respiratory effort Cardiovascular: RRR, no murmur, no edema Gastrointestinal (Abdomen): normal bowel sounds, soft, nontender, no hepatosplenomegaly Musculoskeletal: On physical examination of the left knee there is a trace effusion. There is near full range of motion and no evidence of instability. There is significant tenderness palpation along the medial and lateral joint lines and over the distal femoral condyles. Psychiatric: A+Ox3, euthymic affect Results & Data Results & Data ([facility]) Diagnostic Findings Radiographs of the left knee demonstrate advanced osteoarthritis with joint space narrowing osteophyte formation and dfng-so-gxvf articulation. PG Care Time/CCT Total # of Minutes Spent Total Time Spent with Patient: Total time spent is greater than 50% in coordination of care (as documented) at patient's floor/unit and/or counseling patient: Coding Level of Care Code 36622 Initial Inpt Care Lvl 3 Diagnoses Osteoarthritis of left knee M17.12
[~2020-03-15 07:00] MED LIST changes: +ACETAMINOPHEN 500 MG TAB PO SCH; -ASPI-435 PO; +BUPIVACAINE 0.25% 30 ML VIAL ONE; +BUPIVACAINE 0.5 % 5 MG/1 ML PF 10ML VIAL ONE; -CEFAZOLIN 2000 MG/60 ML D5W IV SCH; +CEFAZOLIN 2000MG 2,000 MG/15 ML SYR IV SCH; -DOCU100C PO; +FAMOTIDINE 20 MG TAB PO SCH; -FRCT/ PO; +GABAPENTIN 600 MG DOSE PO SCH; -HYZ/10015 PO; -LACTATED RINGER'S 1000ML 1,000 ML IV SCH; +LR 500ML BOLUS, THEN 15ML/HR IV SCH; +LR 60ML/HR IV SCH; +ROPIVACAINE 0.5% HCL/PF 150 MG, BUPIVACAINE 0.5% MPF 30 ML, EPINEPHrine 30MG/30ML (OR U... INSTIL SCH; +TRANEXAMIC ACID 1,000 MG **IV Intra-op IV SCH; +TRANEXAMIC ACID 1,000 MG **IV Pre-op IV SCH; +dexAMETHasone 4 MG TAB PO SCH
[2020-03-15] MEDS ORDERED: MIDAZOLAM HCL 1 MG/ML 2ML VIAL ONE (08:08)
[2020-03-15] MEDS ORDERED: ePHEDrine sulfate 50 MG/ML AMP IV PRN (08:27)
[2020-03-15] MEDS ORDERED: ATROPINE SULFATE 0.1 MG/ML 10ML SYR IV PRN (08:27)
[2020-03-15] MEDS ORDERED: fentaNYL citrate 100 MCG/2 ML VIAL IV PRN (08:27)
[2020-03-15] MEDS ORDERED: ONDANSETRON INJ 2 MG/ML 2 ML VIAL IV PRN ×2 (08:27→12:41)
--- NOTE | 2020-03-15 09:18 | History & Physical Bridge Note ---
Date of Service March 15, 2020 History & Physical Bridge Note I have examined the patient, reviewed the History & Physical and in the interval since the performance of the History & Physical I have noted the following changes of clinical significance: no changes noted
[2020-03-15] MEDS ORDERED: LIDOCAINE HCL 2% 2 ML VIAL/AMP(20MG/ML) INFIL ONE (09:34)
[2020-03-15] MEDS ORDERED: ORTHO JOINT ANESTHETIC ONE (09:34)
[2020-03-15] MEDS ORDERED: PROPOFOL IV EMULSION 10 MG/ML 20 ML VIAL IV ONE (09:34)
[2020-03-15] MEDS ORDERED: SODIUM CHLORIDE 0.9% INJ 10 ML VIAL ONE (10:07)
--- NOTE | 2020-03-15 11:38 | Operative Report ---
PG Post Operative Report Pre & Post Diagnosis Operation Date: 03/15/20 09:05 Pre-Op Diagnosis: LEFT KNEE DEGENERATIVE JOINT DISEASE Post-Op Diagnosis: LEFT KNEE DEGENERATIVE JOINT DISEASE I identified the patient and participated in the time-out.: Yes Procedure Operation Date: 03/15/20 09:05 Actual Procedures p Left Total Knee Arthroplasty(Left) - Beto Arvizu DO Surgeon Beto Arvizu DO Showcase Maker Christiano Serna PAC Estimated Blood Loss 10 Findings Consistent with Post-Op Diagnosis Specimens Left femoral and tibial bone Complications none Disposition Disposition: Recovery Room Indications Halie is a pleasant 55-year-old female who is been doing chronic increasing left knee pain. X-rays show some medial compartment arthritis. I got an MRI of the knee which showed more advanced medial compartmental arthritis and fluid within the bone. There was also a little bit of patellofemoral arthritis. We talked [id number]-[id number] about the possibility of doing a partial knee replacement, however, given her BMI and some of the arthritis in her patellofemoral compartment, we decided to proceed with a left total knee arthroplasty. Description of Procedure Implants used: I used a Simona Persona total knee arthroplasty system with a size 8 femur, D tibia, 29 patella, and a size 10 medial congruent polyethylene bearing. All components were cemented in place with Palacos G cement. Halie arrived [facility] for the above procedure. She was seen in the preoperative holding area and the operative extremity was identified and signed. She was given a preoperative antibiotic, TXA, a spinal anesthetic and an adductor nerve block. She was taken back to the operating room and laid on the table in supine position. She was given basic sedation. The operative knee was then prepped and draped in sterile fashion. A timeout was done, and the patient and the operative extremity was properly identified. A midline incision was made directly over the patella. Dissection was taken down to the extensor mechanism. A subvastus arthrotomy was used. The medial retinaculum was released and the fat pad was mostly excised. The knee was flexed and the ACL, PCL, and meniscus were removed. A drill was sent down the center of the femoral canal followed by an intramedullary sofia. Off that sofia a distal femoral cutting block was placed. 9 mm was resected off the distal femur at 5 of valgus. A posterior referencing AP sizing guide was then placed on the distal femur. The femur measured to be a size 8. 2 drill holes were placed in 3 of external rotation. A 4-in-1 cutting block was then impacted into place. Anterior, posterior, and chamfer cuts were then made. The proximal tibia was then exposed. An external tibial alignment guide was placed. A tibial cut guide was then anchored in place and the proximal tibia was then resected. The posterior aspect of the knee was then opened up and any additional meniscus fragments and osteophytes were removed. T he tibia measured to be a size D. The tibial plate was then placed in the appropriate rotation and the tibia was drilled and punched. Trial components were then placed. I used a size 10 medial congruent polyethylene insert. The knee was brought through a full range of motion and felt to be stable. The peg holes for the femoral component were then drilled. The patella was then everted and 9 mm was resected off the posterior aspect of the patella. The patella measured to be a size 29. 3 peg holes were then drilled. A trial patella was placed. The knee was once again brought through a full range of motion and felt to be stable. Trial components were then removed. The surrounding soft tissues were injected with 100 cc of an orthopedic pain control cocktail. All components were then cemented into place with Palacos G cement. The final polyethylene insert was then snapped into place. Once cement was dry the tourniquet was deflated. Hemostasis was obtained. A dilute betadyne lavage was then done for 3 minutes. The joint was then irrigated with normal saline solution. The subvastus arthrotomy was then closed with #1 Vicryl suture. The skin was closed with 2-0 Vicryl, 3-0V lock suture, and rina. A Silverlon and a soft compressive dressing were placed. She was then transferred to a hospital bed and taken to the postanesthesia care unit in stable condition. She tolerated the procedure well. Christiano Serna PA-C, was present for the entire procedure. He was critical for patient positioning, prepping, draping, retraction exposure, wound closure and application of sterile dressing. I attest to the content of the Intraoperative Record and any orders documented therein. Any exceptions are noted below.
--- NOTE | 2020-03-15 12:03 | XRay Report ---
TWO VIEWS LEFT KNEE CLINICAL HISTORY: Postoperative examination. FINDINGS: AP and crosstable lateral portable views of the left knee are obtained. A left knee arthrop lasty is in near anatomic alignment. There has been undersurface remodeling of the patella. No acute fracture is seen. There are expected postoperative changes around the knee including skin clips, soft tissue edema, and subcutaneous gas. IMPRESSION: Expected postoperative changes status post left knee arthroplasty. No acute fracture is s een. ACT 112: Negative or not required by law. Electronically signed by: Adis Horan M.D. 03/15/2020 12:02 PM
[2020-03-15] MEDS ORDERED: METOCLOPRAMIDE HCL INJ 5 MG/ML 2 ML VIAL IV PRN (12:41)
[2020-03-15] MEDS ORDERED: HYDROmorphone INJ 0.5 MG/0.5 ML SYR IV PRN (12:41)
[2020-03-15] MEDS ORDERED: MAGNESIUM HYDROXIDE SUSP 30 ML UDC PO PRN (12:41)
[2020-03-15] MEDS ORDERED: bisacodyL 10 MG SUPP PR PRN (12:41)
[2020-03-15] MEDS ORDERED: NALOXONE HCL 0.4 MG/1 ML VIAL/CARP IV PRN (12:41)
[2020-03-15] MEDS ORDERED: BUTALBITAL/ACETAMIN/CAFFEINE TAB PO PRN (12:46)
--- NOTE | 2020-03-15 13:52 | Anesthesiology Progress Note ---
Date of Service March 15, 2020 Anesthesia Post Procedure Vital Signs Vital Signs: Temp Pulse Pulse Resp BP Pulse Ox 03/15/20 13:25 68 16 135/85 97 03/15/20 12:48 64 16 138/95 97 03/15/20 12:20 36.5 C 60 15 130/84 97 03/15/20 12:05 36.7 C 65 15 126/81 96 03/15/20 11:55 67 15 137/87 95 03/15/20 11:45 72 17 136/82 94 03/15/20 11:35 36.7 C 87 17 126/84 96 03/15/20 08:44 36.6 C 73 20 156/93 H 96 03/15/20 07:58 36.7 C 68 20 169/99 H 94 Transfer of Care Handoff Completed per policy Notes Mental Status: alert / awake / arousable and participated in evaluation Patient Amnestic to Procedure: Yes Nausea / Vomiting: adequately controlled Pain: adequately controlled Airway Patency, RR, SpO2: stable & adequate BP & HR: stable & adequate Hydration State: stable & adequate Neuraxial Anesthesia: was administered and sensory block is resolving Anesthetic Complications: no major complications apparent and Pt Satisfied with anesthetic care
[2020-03-15] MEDS: ACETAMINOPHEN 500 MG TAB PO SCH ×2 (14:36→22:14)
[2020-03-15] MEDS: KETOROLAC 30 MG/ML VIAL IV SCH ×2 (14:37→19:56)
[2020-03-15] MEDS: SODIUM CHLORIDE 0.9% 1000ML 1,000 ML IV SCH ×2 (14:43→22:16)
[2020-03-15] MEDS: CEFAZOLIN 2000MG 2,000 MG/15 ML SYR IV SCH (17:39)
[2020-03-15] MEDS: DOCUSATE SODIUM 100 MG CAP PO SCH (19:57)
[2020-03-15] MEDS: ASPIRIN 81 MG ECTAB PO SCH (19:57)
[2020-03-15] MEDS ORDERED: SENNA 8.6 MG TAB PO SCH (21:00)
[2020-03-15] MEDS ORDERED: ASPIRIN 81 MG ECTAB PO SCH (21:00)
[2020-03-16] MEDS: CEFAZOLIN 2000MG 2,000 MG/15 ML SYR IV SCH (02:00)
[2020-03-16] MEDS: KETOROLAC 30 MG/ML VIAL IV SCH ×2 (02:00→08:07)
[2020-03-16] MEDS: OXYCODONE HCL IR 5 MG TAB (IMMEDIATE RELEASE) PO PRN ×2 (03:18→09:57)
[2020-03-16] MEDS: ACETAMINOPHEN 500 MG TAB PO SCH (06:00)
[2020-03-16 06:10] LABS: Hematocrit (blood only) 36.1 % (37-47); Hemoglobin 12.1 g/dL (12.0-16.0); Mean Corpuscular Hemoglobin 28.1 pg (25-34); Mean Corpuscular Hgb Conc 33.5 g/dL (32-36); Mean Corpuscular Volume 83.8 fL (80-100); Mean Platelet Volume 10.7 fL (7.4-10.4); Platelet Count 291 K/uL (130-400); RDW Standard Deviation 43.1 fL (36.4-46.3); Red Blood Count 4.31 M/uL (4.2-5.4); White Blood Count 18.23 K/uL (4.8-10.8)
[2020-03-16 06:40] LABS: BUN Creatinine Ratio 23.4 (10-20); Calcium 8.5 mg/dl (8.5-10.1); Creatinine Clr Calc Pharmacy 81.4 ml/min; Est GFR (African American) 87.5; Est GFR (Non-African American) 75.5; Potassium 3.5 mmol/L (3.5-5.1)
--- NOTE | 2020-03-16 06:40 | Orthopedic Progress Note ---
Date of Service March 16, 2020 Assessment & Plan (1) Status post left knee replacement: Overall she is doing well. She is not having too much pain in the knee. She will be seen by physical therapy this morning for ambulation and range of motion exercises. She can be discharged home later today as long as she feels safe going home. I talked to her about this extensively at bedside. If she feels comfortable this afternoon she wants to go home, however, if she is having pain or instability with the knee then she would want to stay until tomorrow. Present on Admission?: Yes Tom Ambrose was seen and examined at bedside this morning. Overall she is doing fairly well. She is having too much pain in the left knee. She has been up and ambulating to the bathroom. She has no complaints. Physical Exam Musculoskeletal: On physical examination of the left knee, the dressing is clean and dry. Her leg lengths are equal. She has active dorsiflexion and plantarflexion of her left ankle. Results & Data ([facility]) Vital Signs (Past 12 Hours) Vital Signs Temp Pulse Resp BP BP Pulse Ox 03/16/20 03:10 36.6 C 61 20 131/78 95 03/15/20 23:36 36.8 C 63 18 123/73 94 03/15/20 20:12 36.6 C 73 16 123/79 93 Laboratory Results H & H 02/25/20 03/16/20 Range/Units 14:15 05:08 Hgb 13.3 12.1 (12.0-16.0) g/dL Hct 39.8 36.1 L (37-47) % Coagulation 02/25/20 Range/Units 14:15 INR 1.1 (0.9-1.1) Diagnostic Findings Postoperative x-rays of the left knee show the prosthesis to be in anatomic alignment without any evidence of fracture, dislocation, or loosening. PG Care Time/CCT Total # of Minutes Spent Total Time Spent with Patient: Total time spent is greater than 50% in coordination of care (as documented) at patient's floor/unit and/or counseling patient: Coding Level of Care Code None Diagnoses Status post left knee replacement Z96.652
--- NOTE | 2020-03-16 06:42 | Discharge Summary ---
Date of Service March 16, 2020 Admission HPI Per Admitting Provider Halie is a pleasant 55-year-old female who is been dealing with chronic increasing left knee pain. MRI, x-rays, and clinical examination have all been diagnostic for medial compartmental arthritis of the left knee. After failing conservative treatment, she has elected to proceed with a left unicompartmental knee arthroplasty. Principal Diagnosis Left knee replacement Discharge Data Allergies Allergy/AdvReac Type Severity Reaction Status Date / Time No Known Allergies Allergy Verified 03/15/20 07:55 Consultations 03/15/20 12:41 Consult Case Management - Discharge Planning Routine Procedures Performed Operation Date: 03/15/20 09:05 Actual Procedures p Left Total Knee Arthroplasty(Left) - Beto Arvizu DO Ordered Studies 03/15/20 05:00 US - OR guided needle placemen Routine Hospital Course (1) Status post left knee replacement: On March 15, 2020 Halie [facility] and underwent a left knee replacement without complication. She had a spinal anesthetic. Postoperatively she was started on aspirin for DVT prophylaxis and transferred to the general orthopedic floors. Her hospital course was uneventful. On postop day #1 her H&H was stable and her pain was well controlled. She was able to participate well with physical therapy doing ambulation and range of motion exercises. She was then discharged home. She will follow-up with orthopedics in 2 weeks. Total Time Total Time Spent Total Time Spent (In Minutes): 20 Discharge Plan Discharge Items Patient Disposition: Home - Home Health Services Reason For Visit: LEFT KNEE DEGENERATIVE JOINT DISEASE Discharge Diagnosis: Left knee replacement Activity: As commented below Non-emergency contact: Surgeon Call non-emergency contact if: your wound has increased redness and your wound has increased drainage Follow-up/Referrals: Rush Mello MD [Primary Care Provider] - Diet: Regular Addtl Attending Provider Instructions: Activity and Therapy Recommendations: * If you are using [facility] then therapy will be provided at your home until they feel you have accomplished all of your goals. * If you are using [facility] then Physical Therapy will be provided until they feel you are ready to start Outpatient Physical Therapy. * If you are not using home therapy then Outpatient Physical Therapy should start about 3-5 days from your day of surgery. Therapy will last about 6-10 weeks * It is important not to put a pillow under your knee when you are relaxing or sleeping. It is just as important to make sure you are getting your knee perfectly straight as it is to regain your knee bend. * You were shown a series of exercises in the hospital. Do these exercises three times each day including the exercises you were shown in physical therapy. * Get up and walk several times each day. For the first four weeks, try not to stand or walk for more than one hour at a time. If you do stand or walk for more than one hour, you will not hurt anything, but your leg will likely swell. * As you feel comfortable, you may change from the walker or crutches to a cane and then to independent walking. Medications: * Narcotic You will likely be sent home from the hospital with a prescription for the narcotic pain medication that worked best throughout your stay. * Aspirin Most patients will be required to take Aspirin 81mg twice a day for 6 weeks after surgery. This is obtained [id number] and a prescription is not necessary. * Other medications may be prescribed for specific circumstances. If you have any questions, please call the office at . * Resume previous home medications unless otherwise instructed TEDs/Elastic Stockings: The white elastic stockings help limit swelling and prevent blood clots from forming in your legs.~ The more you wear them, the more they work. Wear them for six weeks. Dressing Care: Leave the Silverlon dressing in place for 7 days. After 7 days you may remove the dressing. If the incision is not draining then you may leave the rina open to air. If there is a little bit of drainage or if the rina are getting stuck on your clothing then cover the incision with a dry dressing. The rina will be removed at your 2 week follow-up appointment. Showering: You may shower with the Silverlon dressing in place. Do not let the shower sp ray hit the dressing directly. Pat the Silverlon dressing dry. If the dressing becomes wet underneath, then simply remove the dressing. Keep the incision dry until you are 7 days out from the day of surgery. After 7 days you may remove the Silverlon dressing and shower with the rina exposed. Let soapy water run over the rina and pat them dry. Do not scrub or soak the incision. Things To Watch For: * Drainage from the incision site that occurs more than one week after your surgery. * Increased redness at the incision site. * Fever above 102 degrees Fahrenheit. * Unusual chest pain or shortness of breath. * Call [facility] at with any of the above problems Follow-Up Visit: Follow-up with Dr. Arvizu's PA (Beto Samaniego) 2-3 weeks after your day of surgery. He will remove your rina and answer any questions. If you have any additional questions or concerns, Dr Arvizu is usually in the office at the same time and will be available An appointment was probably scheduled when you signed-up for surgery in the office. If you have any questions call Office Instructions: More detailed instructions as well as Frequently Asked Questions were provided in a folder by our office when you signed-up for surgery. Please review these instructions when you get home. If you have any further questions or concerns, please feel free to call the office at [phone] Pending Studies at Discharge: No Stand-Alone Forms: My [facility], Smoking Cessation Medications and DC Order Prescriptions: New oxycodone 5 mg Tablet 5 mg PO Q4H PRN (Reason: pain) Qty: 30 RF: 0 aspirin 81 mg Tablet,Delayed Release (Dr/Ec) 81 mg PO BID 42 Days Qty: 0 RF: 0 Continued ptumjrwdfw-jfcnjlfafjcss-sxww [Fioricet] 50-300-40 mg capsule 1 cap PO Q8H PRN (Reason: Migraine Headache) RF: 0 aspirin 81 mg Tablet,Delayed Release (Dr/Ec) 81 mg PO QAM RF: 0 hydrochlorothiazide 25 mg Tablet 25 mg PO QAM RF: 0 losartan 100 mg Tablet 100 mg PO QAM RF: 0 meloxicam [Mobic] 15 mg tablet 15 mg PO QAM RF: 0 Discharge Orders: Discharge Order (Routine); Ordered 03/16/20 Ordered By: Beto Arvizu Admission Data Admit Date/Time: 03/15/20 12:41 Attending Provider: Beto Arvizu Admit Provider: Beto Arvizu Primary Care Provider: Riaz,Rush Coding Level of Care Code D/C Day Management <30 mins Diagnoses Status post left knee replacement Z96.652
[2020-03-16] MEDS ORDERED: dexAMETHasone 4 MG TAB PO SCH (08:00)
[2020-03-16] MEDS: DOCUSATE SODIUM 100 MG CAP PO SCH (08:06)
[2020-03-16] MEDS: ASPIRIN 81 MG ECTAB PO SCH (08:07)
[2020-03-16] MEDS ORDERED: hydroCHLOROthiazide 25 MG TAB PO SCH (09:00)
[2020-03-16] MEDS ORDERED: MULTIVITAMIN TAB PO SCH (09:00)
[2020-03-16] MEDS ORDERED: LOSARTAN POTASSIUM 50 MG TAB PO SCH (09:00)
[2020-03-16] MEDS ORDERED: MELOXICAM 7.5 MG TAB PO SCH (09:00)
== END 2020-03-16 12:41 | disposition home health service (06) ==
LOC: 3E 07:00 → ASU 07:00